=== PATIENT | female | born 1975 | race Native Hawaiian/Other Pacific Islander ===

== ENCOUNTER 2017-03-20 08:33 | Emergency (ER) | payer BC ==
[~2017-03-20] VITALS: Ht 152.4 cm; Wt 68.0 kg
[2017-03-20 08:39] VITALS: BP 101/61; PULSE 92; RESP 16; TEMP 98.2; O2SAT 100
[2017-03-20] MEDS ORDERED: PRIL20TA2 PO (08:58)
[2017-03-20] MEDS ORDERED: LEVO50TA4 PO (08:58)
--- NOTE | 2017-03-20 09:09 | PD ---
HPI Chief Complaint: GI Complaint Time Seen by Provider: 08:56 Travel History International Travel<30 days: No Contact w/Intl Traveler<30days: No Traveled to known affect area: No History of Present Illness HPI 41-year-old female complains of epigastric abdominal pain with nausea vomiting. Patient states the symptoms started 2 days ago. Patient states the pain is aching pain constant pain localized around the epigastric area. Patient states that the pain is worse with eating. Patient denies any pain radiation. Patient states that she has nausea vomiting associate with the pain. Patient denies any chest pain or shortness of breath. Patient denies any dysuria or frequency. Patient denies any vaginal discharge or bleeding. Patient denies any back pain. Patient has history of hypothyroidism and on levothyroxine. Patient denies any history of NSAIDs, alcohol or smoking. PFSH Past Medical History Diminished Hearing: No Thyroid Disease: Yes Influenza Vaccination: Yes ?: Not Past Surgical History Surgical History: No Previous Surgery Social History Alcohol Use: No Tobacco Use: No Allergies-Medications (Allergen,Severity, Reaction): Coded Allergies: No Known Allergies (Verified Allergy, Unknown, 03/20/17) Reported Meds & Prescriptions Reported Meds & Active Scripts Active Reported Levothyroxine (Levothyroxine Sodium) 50 Mcg Tab 50 Mcg PO DAILY Prilosec (Omeprazole Magnesium) 20 Mg Tab 20 Mg PO DAILY Review of Systems General / Constitutional: No: Fever Eyes: No: Visual changes HENT: No: Headaches Cardiovascular: No: Chest Pain or Discomfort Respiratory: No: Shortness of Breath Gastrointestinal: Positive: Nausea, Vomiting, Abdominal Pain Genitourinary: No: Dysuria Musculoskeletal: No: Pain Skin: No Rash Neurologic: No: Weakness Psychiatric: No: Depression Endocrine: No: Polydipsia Hematologic/Lymphatic: No: Easy Bruising Physical Exam Narrative GENERAL: Well-nourished, well-developed patient. SKIN: Focused skin assessment warm/dry. HEAD: Normocephalic. EYES: No scleral icterus. No injection or drainage. NECK: Supple, trachea midline. No JVD or lymphadenopathy. CARDIOVASCULAR: Regular rate and rhythm without murmurs, gallops, or rubs. RESPIRATORY: Breath sounds equal bilaterally. No accessory muscle use. GASTROINTESTINAL: Abdomen soft, nondistended. Patient has mild to moderate tenderness on palpation epigastric area. No rebound tenderness. No mass. MUSCULOSKELETAL: No cyanosis, or edema. BACK: Nontender without obvious deformity. No CVA tenderness. Neurologic exam normal. Data Data Last Documented VS Vital Signs Date Time Temp Pulse Resp B/P (MAP) Pulse Ox O2 Delivery O2 Flow Rate FiO2 03/20/17 09:29 88 18 105/80 (88) 100 Room Air 03/20/17 08:39 98.2 Orders Orders Complete Blood Count With Diff (03/20/17 09:02) Comprehensive Metabolic Panel (03/20/17 09:02) Lipase (03/20/17 09:02) Urinalysis - C+S If Indicated (03/20/17 09:02) Ct Abd/Pel W Iv Contrast(Rout) (03/20/17 09:02) Iv Access Insert/Monitor (03/20/17 09:02) Ecg Monitoring (03/20/17 09:02) Oximetry (03/20/17 09:02) Ondansetron Inj (Zofran Inj) (03/20/17 09:15) Sodium Chloride 0.9% Flush (Ns Flush) (03/20/17 09:15) Famotidine Inj (Pepcid Inj) (03/20/17 09:15) Ed Urine Pregnancytest Poc (03/20/17 09:02) Al-Mag Hy-Si 40-40-4 Mg/Ml Liq (Mag-Al P (03/20/17 09:15) Zkcpl-Lgymeu-Txtuvr-Pb Liq ( Liq (03/20/17 09:15) Iohexol 350 Inj (Omnipaque 350 Inj) (03/20/17 11:06) Labs Laboratory Tests Test 03/20/17 09:15 03/20/17 09:20 Urine Collection Type CLEAN CATCH Urine Color STRAW Urine Turbidity CLEAR Urine pH 6.0 Urine Specific [place] 1.006 Urine Protein NEG mg/dL Urine Glucose (UA) NEG mg/dL Urine Ketones NEG mg/dL Urine Occult Blood TRACE Urine Nitrite NEG Urine Bilirubin NEG Urine Leukocyte Esterase NEG Urine RBC 0-3 /hpf Urine Squamous Epithelial Cells 0-5 /hpf Urine Waxy Casts 0-2 /lpf Microscopic Urinalysis Comment CULT NOT INDICATED Urine Collection Time 09:15 White Blood Count 7.1 TH/MM3 Red Blood Count 5.21 MIL/MM3 Hemoglobin 11.1 GM/DL Hematocrit 37.1 % Mean Corpuscular Volume 71.2 FL Mean Corpuscular Hemoglobin 21.4 PG Mean Corpuscular Hemoglobin Concent 30.0 % Red Cell Distribution Width 14.0 % Platelet Count 393 TH/MM3 Mean Platelet Volume 7.1 FL Neutrophils (%) (Auto) 67.0 % Lymphocytes (%) (Auto) 25.8 % Monocytes (%) (Auto) 5.7 % Eosinophils (%) (Auto) 0.7 % Basophils (%) (Auto) 0.8 % Neutrophils # (Auto) 4.8 TH/MM3 Lymphocytes # (Auto) 1.8 TH/MM3 Monocytes # (Auto) 0.4 TH/MM3 Eosinophils # (Auto) 0.0 TH/MM3 Basophils # (Auto) 0.1 TH/MM3 CBC Comment AUTO DIFF Differential Comment AUTO DIFF CONFIRMED Target Cells 1+ Blood Urea Nitrogen 14 MG/DL Creatinine 0.74 MG/DL Random Glucose 91 MG/DL Total Protein 7.6 GM/DL Albumin 3.3 GM/DL Calcium Level 8.4 MG/DL Alkaline Phosphatase 64 U/L Aspartate Amino Transf (AST/SGOT) 36 U/L Alanine Aminotransferase (ALT/SGPT) 28 U/L Total Bilirubin 0.3 MG/DL Sodium Level 135 MEQ/L Potassium Level 5.0 MEQ/L Chloride Level 102 MEQ/L Carbon Dioxide Level 25.4 MEQ/L Anion Gap 8 MEQ/L Estimat Glomerular Filtration Rate 86 ML/MIN Lipase 178 U/L MDM Medical Decision Making Medical Screen Exam Complete: Yes Emergency Medical Condition: Yes Interpretation(s) Last Impressions Abdomen/Pelvis CT 03/20/17 0902 Signed Impressions: Service Date/Time: Monday, March 20, 2017 10:56 - CONCLUSION: Negative for acute process. As the Franky Tobias MD FACR 11:23 AM. CBC within normal limit. CMP within normal limit. UA is negative. Urine test negative. Differential Diagnosis Differential diagnosis including gastritis, PUD, pancreatitis, cholecystitis, colitis, UTI, pyelonephritis. Narrative Course 41-year-old female with epigastric abdominal pain. Pepcid 20 mg IV. Maalox 30 cc by mouth. 10 cc by mouth. Diagnosis Primary Impression: Gastritis Qualified Codes: K29.00 - Acute gastritis without bleeding Patient Instructions: General Instructions Additional Instructions: Take medication as directed. Avoid NSAIDs and alcohol and cigarettes. Follow- up with personal physician and writer technical publications. Return if worse. Med/Other Pt SpecificInfo: Prescription(s) given Scripts Dicyclomine (Bentyl) 10 Mg Cap 10 MG PO TID Y for Bowel Management, #30 CAP 0 Refills Prov: Tha Enamorado MD 03/20/17 Sucralfate (Carafate) 1 Gram Tab 1 GM PO QID for Ulcer Prevention, #120 TAB 0 Refills On empty stomach Prov: Tha Enamorado MD 03/20/17 Pantoprazole (Protonix) 40 Mg Tab 40 MG PO DAILY for Reflux, #30 TAB 0 Refills Prov: Tha Enmaorado MD 03/20/17 Disposition: 01 DISCHARGE HOME Condition: Stable hTa Enamorado MD Mar 20, 2017 09:09
[2017-03-20] MEDS ORDERED: FAMOTIDINE 20 MG/2 ML VIAL IV PUSH ONE (09:15)
[2017-03-20] MEDS ORDERED: ALUMINUM/MAGNESIUM/SIMETH 30 ML CUP PO ONE (09:15)
[2017-03-20] MEDS ORDERED: ATROPINE/SCOPOLAM/HYOSCYAM/PB ELIXIR 10 ML CUP PO ONE (09:15)
[2017-03-20] MEDS ORDERED: SODIUM CHLORIDE 0.9% FLUSH 10 ML FLUSH IV FLUSH PRN (09:15)
[2017-03-20] MEDS ORDERED: ONDANSETRON HCL 4 MG/2 ML VIAL IVP ONE (09:15)
[2017-03-20 09:21] LABS: BILIRUBIN, URINE NEG (NEG); BLOOD, URINE TRACE (NEG); GLUCOSE,URINE NEG (NEG); KETONE, URINE NEG (NEG); NITRITE,URINE NEG (NEG); URINE LEUKOCYTE ESTERASE NEG (NEG)
[2017-03-20 09:29] VITALS: BP 105/80; PULSE 88; RESP 18; O2SAT 100
[2017-03-20 09:29] LABS: AUTOMATED NEUTROPHIL # 4.8 TH/MM3 (1.8-7.7); BASOPHIL # 0.1 TH/MM3 (0-0.2); BASOPHIL % 0.8 % (0.0-2.0); EOSINOPHIL % 0.7 % (0.0-4.0); HEMATOCRIT 37.1 % (35.0-46.0); HEMOGLOBIN 11.1 GM/DL (11.6-15.3); LYMPH % 25.8 % (9.0-44.0); LYMPHOCYTE # 1.8 TH/MM3 (1.0-4.8); MEAN CELL VOLUME 71.2 FL (80.0-100.0); MEAN CORPUSCULAR HEMOGLOBIN 21.4 PG (27.0-34.0); MEAN PLATELET VOLUME 7.1 FL (7.0-11.0); MONO % 5.7 % (0.0-8.0); MONOCYTE # 0.4 TH/MM3 (0-0.9); PLATELET COUNT 393 TH/MM3 (150-450); RED BLOOD COUNT 5.21 MIL/MM3 (4.00-5.30); WHITE BLOOD COUNT 7.1 TH/MM3 (4.0-11.0)
[2017-03-20 09:30] LABS: RBC, URINE 0-3 /hpf (0-3); URINE COLOR STRAW (YELLW/STRAW); WAXY CAST, URINE 0-2 /lpf
[2017-03-20 09:31] LABS: SQUAMOUS EPITHELIAL CELL URINE 0-5 /hpf (0-5)
[2017-03-20 09:52] LABS: BICARBONATE 25.4 MEQ/L (21.0-32.0); CALCIUM 8.4 MG/DL (8.5-10.1); GLUCOSE,RANDOM 91 MG/DL (74-106)
[2017-03-20 09:53] LABS: ALBUMIN 3.3 GM/DL (3.4-5.0); BLOOD UREA NITROGEN 14 MG/DL (7-18)
[2017-03-20 09:54] LABS: LIPASE 178 U/L (73-393)
[2017-03-20 09:55] LABS: AST (GOT) 36 U/L (15-37)
[2017-03-20 09:56] LABS: ALT (GPT) 28 U/L (10-53); CHLORIDE 102 MEQ/L (98-107); CREATININE 0.74 MG/DL (0.50-1.00); GLOMERULAR FILTRATION RATE 86 ML/MIN (>89); SODIUM (NA) 135 MEQ/L (136-145)
[2017-03-20 09:57] LABS: TOTAL BILIRUBIN ADULT 0.3 MG/DL (0.2-1.0); TOTAL PROTEIN 7.6 GM/DL (6.4-8.2)
[2017-03-20 09:58] LABS: ALKALINE PHOSPHATASE 64 U/L (45-117)
[2017-03-20 10:48] LABS: TARGET CELLS 1+ (NORMAL)
[2017-03-20] MEDS ORDERED: IOHEXOL 350 MG/ML 10 ML VIAL (for RAD DIAG) IVCONTRAST ONE (11:06)
--- NOTE | 2017-03-20 11:15 | RADRPT ---
EXAM DATE/TIME: 03/20/2017 10:56 [facility] COMPARISON: No previous studies available for comparison. INDICATIONS : Epigastric pain with nausea and vomiting x 2 days. IV CONTRAST: 85 cc Omnipaque 350 (iohexol) IV ORAL CONTRAST: No oral contrast ingested. RADIATION DOSE: 9.61 CTDIvol (mGy) MEDICAL HISTORY : Hypothyroidism. SURGICAL HISTORY : None. ENCOUNTER: Initial ACUITY: 2 days PAIN SCALE: 7/10 LOCATION: Epigastric TECHNIQUE: Volumetric scanning of the abdomen and pelvis was performed. Using automated exposure control and ad justment of the mA and/or kV according to patient size, radiation dose was kept as low as reasonably achievable to obtain optimal diagnostic quality images. DICOM format image data is available electro nically for review and comparison. FINDINGS: Lung base is are clear. The liver, spleen, pancreas and adrenals unremarkable There is symmetric renal function There is no adenopathy. There is no ascites. In the pelvis uterus and adnexa regions are unremarkable. There is no free fluid. Review of bone windows reveals only mild degenerative changes. CONCLUSION: Negative for acute process. As the Franky Tobias MD FACR on March 20, 2017 at 11:12 Board Certified Radiologist. This report was verified electronically.
[2017-03-20] MEDS ORDERED: PROT40TA PO (11:27)
[2017-03-20] MEDS ORDERED: DICY10 PO (11:27)
[2017-03-20] MEDS ORDERED: CARA1TAB6 PO (11:27)
[2017-03-20 11:41] VITALS: BP 104/68
== END 2017-03-20 11:47 | disposition home or self-care (01) ==
LOC: PHED 08:33
DX: K29.00 Acute gastritis without bleeding (principal); E03.9 Hypothyroidism, unspecified
CPT/HCPCS: 74177; 80053; 81001; 83690; 84703; 85025; 96374; 96375; 99285; J2405; Q9967